=== PATIENT | female | born 1970 | race Caucasian/White ===

== ENCOUNTER 2023-09-06 14:50 | Outpatient (OUT) | payer MEDICAID, SELFPAY ==
--- NOTE | 2023-09-06 15:17 | CT_ITS ---
The [address] [address] Patient Name: ANASTACIA GORMAN MRN: [id number] date: 1970 Sex: F Assigned Patient Location: CT Current Patient Location: CT Accession/Order Number: [id number] Exam Date: 09/06/2023 15:05 Report Date: 09/06/2023 15:43 At the request of: СЕРГЕЙ SAUER Procedure: CT sinus wo con EXAM: CT sinus wo con HISTORY: Chronic Maxillary Sinusitis J32.0, Nasal Valve Collapse M95. COMPARISON: None. TECHNIQUE: Axial soft tissue and bone windows through the sinuses with coronal and sagittal reformats. CT dose reduction technique was used including Automated Exposure Control. Findings: There is mild mucosal thickening within the antrum of the right maxillary sinus. Otherwise, the remainder of the paranasal sinuses are well aerated. No air-fluid levels. The bilateral ostiomeatal complexes are patent. Mild mucosal thickening involving the nasal turbinates. Mild rightward deviation of the nasal septum. No erosive change or chronic osseous remodeling. CT/CT sinus wo con IMPRESSION: Mild right maxillary sinus mucosal thickening. Electronically authenticated by: KEYANNA SY Date: 09/06/2023 15:43
== END 2023-09-06 14:51 | disposition home or self-care (01) ==
LOC: CT 14:53
PROVIDERS: Visit Provider Otolaryngology
DX: J32.0 Chronic maxillary sinusitis (principal); M95.0 Acquired deformity of nose
CPT/HCPCS: 70486